=== PATIENT | female | born 2005 | race Caucasian/White ===

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

== ENCOUNTER 2024-11-30 18:02 | Emergency (ER) | payer BC ==
[~2024-11-30] VITALS: Ht 160 cm; Wt 49.4 kg
[~2024-11-30 18:02] MED LIST changes: +ONDA-282 PO; -ONDA4TAB6 PO
[2024-11-30] MEDS ORDERED: HYDR50TA70 (18:10)
[2024-11-30] MEDS: ONDANSETRON 4MG ORAL DISINTEGRATING TAB PO ONE (18:43)
[2024-11-30 18:45] LABS: BASO % 0.2 % (0.0-1.0); EOS % 0.2 % (0.0-3.0); HEMOGLOBIN 15.2 g/dl (12.0-15.5); LYMPH # 1.5 10^3/uL (1.5-5.0); LYMPH % 16.9 % (24.0-44.0); MEAN CORPUSCULAR HEMOGLOBIN 30.5 pg (27.0-33.0); MEAN CORPUSCULAR HGB CONC 33.8 g/dl (32.0-36.5); MEAN CORPUSCULAR VOLUME 90.2 fl (80.0-96.0); MONO # 0.7 10^3/uL (0.0-0.8); MONO % 7.9 % (2.0-8.0); NEUTROPHILS # 6.6 10^3/uL (1.5-8.5); NEUTROPHILS % 74.6 % (36.0-66.0); PLATELET COUNT, AUTOMATED 257 10^3/uL (150-450); RED BLOOD COUNT 4.99 10^6/uL (4.00-5.40); WHITE BLOOD COUNT 8.8 10^3/uL (4.0-10.0)
[2024-11-30 18:59] LABS: HCG, SERUM QUANTITATIVE < 2.6 MIU/ML (<4.2)
[2024-11-30 19:00] LABS: BLOOD UREA NITROGEN 12 MG/DL (9-23); CALCIUM LEVEL 10.3 MG/DL (8.5-10.1); CARBON DIOXIDE LEVEL 25 MMOL/L (20-31); CHLORIDE LEVEL 103 MMOL/L (98-107); CREATININE FOR GFR 0.56 MG/DL (0.55-1.30); GLOMERULAR FILTRATION RATE > 60.0 (>60); GLUCOSE, FASTING 93 MG/DL (60-100); POTASSIUM SERUM 3.8 MMOL/L (3.5-5.1); SODIUM LEVEL 141 MMOL/L (136-145)
[2024-11-30] MEDS: PANTOPRAZOLE 40MG VIAL IV ONE (19:47)
[2024-11-30 19:48] LABS: LIPASE 22 U/L (12-53)
[2024-11-30 19:50] LABS: ALBUMIN 5.6 G/DL (3.2-5.2); ALKALINE PHOSPHATASE 68 U/L (35-104); ALT/SGPT 19 U/L (7.0-40); AST/SGOT 19 U/L (<34); BILIRUBIN,DIRECT 0.2 MG/DL (<0.4); BILIRUBIN,TOTAL 0.8 MG/DL (0.3-1.2)
[2024-11-30] MEDS: PROMETHAZINE 25MG/ML 1ML VIAL IV ONE (19:50)
[2024-11-30] MEDS: NS (Normal Saline) 0.9% 1,000 ML IV ONE (19:54)
[2024-11-30 20:53] VITALS: BP 108/69; TEMP 98.6; O2SAT 96
== END 2024-11-30 20:55 | disposition home or self-care (01) ==
LOC: M ED 18:02
DX: T51.0X1A Toxic effect of ethanol, accidental (unintentional), initial encounter (principal); R11.2 Nausea with vomiting, unspecified; F41.9 Anxiety disorder, unspecified; F12.10 Cannabis abuse, uncomplicated; Z79.899 Other long term (current) drug therapy
CPT/HCPCS: 36415; 80048; 80076; 83690; 84702; 85025; 96361; 96374; 96375; 99284; J2470; J2550

== ENCOUNTER → 2025-04-09 | Outpatient (REF) | payer BC ==
[~2025-04-09] MED LIST changes: +HYDR50TA70
[2025-04-09 19:57] LABS: Trichomonas vaginalis (AMP) NOT DETECTED (NEGATIVE)
[2025-04-09 20:21] LABS: GC DNA AMPLIFICATION NEGATIVE (NEGATIVE)
== END ==
LOC: M LAB REF 17:07
PROVIDERS: ATTEND Student in an Organized Health Care Education/Training Program
DX: Z00.00 Encounter for general adult medical examination without abnormal findings (principal)